=== PATIENT | male | born 1940 | race African-American/Black ===

== ENCOUNTER 2021-12-19 08:20 | Inpatient (IN) | payer OTHER ==
[~2021-12-19] VITALS: Ht 172.7 cm; Wt 93.0 kg
[2021-12-19] MEDS ORDERED: dilTIAZem 25 MG/5 ML VIAL IV ONE ×2 (08:33→08:45)
[2021-12-19] MEDS ORDERED: SODIUM CHLORIDE 0.9% 1,000 ML IV ONE (08:45)
[2021-12-19] MEDS ORDERED: ONDANSETRON HCL 4 MG/2 ML VIAL IV ONE (08:45)
[2021-12-19] MEDS ORDERED: dilTIAZem 125mg/125ml BAG KIT 125 ML IV ONE (08:45)
[2021-12-19] MEDS ORDERED: MORPHINE SULFATE 4 MG/ML SYR/VIAL IV ONE (08:45)
[2021-12-19 09:07] LABS: Basophils # (auto) 0.1 10 ^3/uL (0-0.2); Basophils % (auto) 0.6 % (0.0-2.0); Eosinophils # (auto) 0.3 10 ^3/uL (0-0.8); Eosinophils % (auto) 2.1 % (0.0-7.0); Hematocrit 47.2 % (41.0-53.0); Hemoglobin 15.4 g/dL (13.5-17.5); Lymphocytes # (auto) 2.5 10 ^3/uL (0.4-5.4); Lymphocytes % (auto) 15.6 % (10.0-50.0); Mean Corpuscular Hemoglobin 32.6 pg (28.0-32.0); Mean Corpuscular Hgb Conc. 32.6 g/dL (32.0-36.0); Mean Corpuscular Volume 100.3 fL (80.0-100.0); Monocytes # (auto) 0.8 10 ^3/uL (0-1.3); Monocytes % (auto) 5.1 % (0.0-12.0); Neutrophils # (auto) 12.1 10 ^3/uL (1.6-8.6); Neutrophils % (auto) 76.6 % (37.0-80.0); Red Blood Cells 4.71 10^6/uL (4.5-5.90); Red Cell Distribution Width 13.3 % (11.8-14.3); White Blood Cell 15.8 10^3/uL (4.4-10.8)
[2021-12-19 09:23] LABS: Albumin 3.7 g/dL (3.4-5.0); Magnesium 2.6 mg/dL (1.6-2.6); Potassium 4.8 mmol/L (3.5-5.1)
[2021-12-19 09:26] LABS: BUN/Creatinine Ratio 16.1; Bilirubin, Total 0.3 mg/dL (0.2-1.0); Total Protein 7.5 g/dL (6.4-8.2)
[2021-12-19 09:29] LABS: INR 0.99 (0.9-1.15); Partial Thromboplastin Time 29.4 sec (24.6-33.4)
[2021-12-19] MEDS ORDERED: ENOXAPARIN SOD 40 MG/0.4 ML SYRINGE SC ONE (09:45)
[2021-12-19 11:44] LABS: Urine Bacteria NONE SEEN /hpf (None Seen); Urine Blood TRACE /uL (Negative); Urine Hyaline Cast MOD /lpf (0 - 2); Urine Specific Gravity 1.019 (1.001-1.035); Urine WBC 1 /hpf (0 - 3)
[2021-12-19] MEDS ORDERED: NITROGLYCERIN 0.4 MG SL TAB SL PRN ×2 (12:00→14:00)
[2021-12-19] MEDS ORDERED: HEPARIN DRIP/D5W 100UNITS/ML 250 ML IV SCH ×2 (12:00→13:30)
[2021-12-19] MEDS ORDERED: MORPHINE SULFATE INJ 2 MG/ml SYRG IV PRN ×2 (12:00)
[2021-12-19] MEDS: SODIUM CHLORIDE 0.9% 1,000 ML IV SCH ×2 (12:00→20:20)
[2021-12-19] MEDS ORDERED: HYDROcodone-ACET 5/325MG TAB PO PRN (12:00)
[2021-12-19] MEDS ORDERED: ONDANSETRON HCL 4 MG/2 ML VIAL IV PRN (12:00)
[2021-12-19 13:09] LABS: Basophils # (auto) 0.1 10 ^3/uL (0-0.2); Basophils % (auto) 0.5 % (0.0-2.0); Eosinophils # (auto) 0 10 ^3/uL (0-0.8); Eosinophils % (auto) 0.2 % (0.0-7.0); Hematocrit 45.7 % (41.0-53.0); Lymphocytes # (auto) 1.3 10 ^3/uL (0.4-5.4); Lymphocytes % (auto) 8.6 % (10.0-50.0); Mean Corpuscular Hemoglobin 32.5 pg (28.0-32.0); Mean Corpuscular Hgb Conc. 32.9 g/dL (32.0-36.0); Mean Corpuscular Volume 98.7 fL (80.0-100.0); Monocytes # (auto) 0.8 10 ^3/uL (0-1.3); Monocytes % (auto) 5.2 % (0.0-12.0); Neutrophils # (auto) 13.2 10 ^3/uL (1.6-8.6); Neutrophils % (auto) 85.5 % (37.0-80.0); Red Blood Cells 4.63 10^6/uL (4.5-5.90); Red Cell Distribution Width 13.4 % (11.8-14.3); White Blood Cell 15.5 10^3/uL (4.4-10.8)
[2021-12-19] MEDS ORDERED: HEPARIN SODIUM (PORCINE) 5000 UNITS/ML 1ML VIAL IV ONE (13:30)
[2021-12-19 13:33] LABS: INR 0.97 (0.9-1.15); Partial Thromboplastin Time 32.2 sec (24.6-33.4)
[2021-12-19 21:14] LABS: INR 1.03 (0.9-1.15); Partial Thromboplastin Time 54.6 sec (24.6-33.4)
[2021-12-20] VITALS (92 sets, daily range): BP systolic 52–168; BP diastolic 20–145
[2021-12-20] MEDS: MORPHINE SULFATE INJ 2 MG/ml SYRG IV PRN ×2 (00:57→01:09)
[2021-12-20] MEDS ORDERED: LABETALOL HCL 5 MG/ML 4ML SYRINGE IV ONE (01:15)
[2021-12-20] MEDS ORDERED: SUCCINYLCHOLINE CHLORIDE 20 MG/ML 10ML VIAL IV ONE ×2 (01:21→01:24)
[2021-12-20] MEDS ORDERED: ETOMIDATE (2MG/ML) 20ML VIAL IV ONE ×2 (01:21→01:24)
[2021-12-20] MEDS: PROPOFOL 100 ML IV SCH ×6 (01:27→22:00)
[2021-12-20] MEDS ORDERED: PROPOFOL 100 ML IV ONE (01:28)
[2021-12-20] MEDS: MIDAZOLAM DRIP 50 mg/50mL 50 ML IV SCH ×3 (01:41→22:26)
[2021-12-20] MEDS ORDERED: MIDAZOLAM DRIP 50 mg/50mL 50 ML IV ONE (01:41)
[2021-12-20] MEDS ORDERED: ANGIOMAX 250 MG VIAL IV ONE (01:55)
[2021-12-20] MEDS ORDERED: LIDOCAINE 2%HCL (LOCAL ANESTH.) INJ 20ML MDV ONE (01:56)
[2021-12-20] MEDS ORDERED: IOHEXOL 350 MG/ML 100ML IJ ONE (01:56)
[2021-12-20] MEDS ORDERED: SODIUM CHL 0.9% 50 ML ONE (01:56)
[2021-12-20 02:00] LABS: Basophils # (auto) 0.1 10 ^3/uL (0-0.2); Basophils % (auto) 0.4 % (0.0-2.0); Eosinophils # (auto) 0.2 10 ^3/uL (0-0.8); Eosinophils % (auto) 1.3 % (0.0-7.0); Hematocrit 46.2 % (41.0-53.0); Lymphocytes # (auto) 5.1 10 ^3/uL (0.4-5.4); Lymphocytes % (auto) 28.9 % (10.0-50.0); Mean Corpuscular Hemoglobin 32.9 pg (28.0-32.0); Mean Corpuscular Hgb Conc. 32.5 g/dL (32.0-36.0); Mean Corpuscular Volume 101.2 fL (80.0-100.0); Monocytes # (auto) 1.2 10 ^3/uL (0-1.3); Monocytes % (auto) 6.7 % (0.0-12.0); Neutrophils # (auto) 11.1 10 ^3/uL (1.6-8.6); Neutrophils % (auto) 62.7 % (37.0-80.0); Nucleated Red Blood Cells % 0.1 %; Red Blood Cells 4.57 10^6/uL (4.5-5.90); Red Cell Distribution Width 13.5 % (11.8-14.3); White Blood Cell 17.8 10^3/uL (4.4-10.8)
[2021-12-20 02:15] LABS: INR 1.03 (0.9-1.15); Partial Thromboplastin Time 41.7 sec (24.6-33.4)
[2021-12-20 02:17] LABS: Albumin 3.5 g/dL (3.4-5.0); BUN/Creatinine Ratio 15.6; Potassium 4.7 mmol/L (3.5-5.1)
[2021-12-20 02:20] LABS: Bilirubin, Total 0.5 mg/dL (0.2-1.0); Total Protein 7.1 g/dL (6.4-8.2)
[2021-12-20] MEDS ORDERED: TICAGRELOR 90 MG TAB NG ONE (04:00)
[2021-12-20] MEDS ORDERED: HEPARIN SODIUM (PORCINE) 5000 UNITS/ML 1ML VIAL ONE (04:15)
[2021-12-20] MEDS: SODIUM CHLORIDE 0.9% 1,000 ML IV SCH ×3 (05:00→15:15)
[2021-12-20 05:02] LABS: Basophils # (auto) 0.1 10 ^3/uL (0-0.2); Basophils % (auto) 0.4 % (0.0-2.0); Eosinophils # (auto) 0 10 ^3/uL (0-0.8); Eosinophils % (auto) 0.3 % (0.0-7.0); Hematocrit 40.7 % (41.0-53.0); Hemoglobin 13.5 g/dL (13.5-17.5); Lymphocytes # (auto) 1.1 10 ^3/uL (0.4-5.4); Lymphocytes % (auto) 5.6 % (10.0-50.0); Mean Corpuscular Hgb Conc. 33.2 g/dL (32.0-36.0); Mean Corpuscular Volume 99.5 fL (80.0-100.0); Monocytes # (auto) 1.4 10 ^3/uL (0-1.3); Monocytes % (auto) 7.3 % (0.0-12.0); Neutrophils # (auto) 16.4 10 ^3/uL (1.6-8.6); Neutrophils % (auto) 86.4 % (37.0-80.0); Red Blood Cells 4.09 10^6/uL (4.5-5.90); Red Cell Distribution Width 13.2 % (11.8-14.3)
[2021-12-20 06:05] LABS: INR 1.36 (0.9-1.15); Partial Thromboplastin Time 55.5 sec (24.6-33.4)
[2021-12-20] MEDS: D5W 5% IV SCH (06:45)
[2021-12-20] MEDS: HEPARIN SODIUM IV SCH (06:45)
[2021-12-20] MEDS: HEPARIN DRIP/D5W 100UNITS/ML 250 ML IV SCH ×2 (07:00→23:07)
[2021-12-20] MEDS ORDERED: SODIUM CHLORIDE 0.9% 500 ML IV ONE ×2 (08:00→09:00)
[2021-12-20 08:31] LABS: INR 1.09 (0.9-1.15); Partial Thromboplastin Time 39.6 sec (24.6-33.4)
[2021-12-20 09:55] LABS: Albumin 2.8 g/dL (3.4-5.0); BUN/Creatinine Ratio 17.2; Calcium 7.6 mg/dL (8.5-10.1); Potassium 4.5 mmol/L (3.5-5.1)
[2021-12-20 09:58] LABS: Bilirubin, Total 0.7 mg/dL (0.2-1.0)
[2021-12-20] MEDS: TICAGRELOR 90 MG TAB GT SCH ×2 (11:30→21:43)
[2021-12-20 11:45] LABS: INR 1.03 (0.9-1.15)
[2021-12-20] MEDS ORDERED: DEXTROSE (50%) 50ML SYRG IV PRN (11:45)
[2021-12-20] MEDS: InsuLIN REG 1unit/0.01ml Soln (100units/ml) SC SCH ×2 (12:00→18:00)
[2021-12-20] MEDS: ACCU-CHEK COMFORT CURVE STRIP VI SCH ×2 (12:00→18:00)
[2021-12-20] MEDS ORDERED: OMEG100062 PO (13:57)
[2021-12-20] MEDS ORDERED: CLOP75TA70 PO (13:57)
[2021-12-20] MEDS ORDERED: DIGO0.12 PO (13:57)
[2021-12-20] MEDS ORDERED: ATOR20TA50 PO (13:57)
[2021-12-20] MEDS ORDERED: GABA-339 PO (13:57)
[2021-12-20] MEDS ORDERED: FURO20TA3 PO (13:57)
[2021-12-20] MEDS ORDERED: OMEP20TA PO (13:57)
[2021-12-20] MEDS ORDERED: ASPI-543 PO (13:57)
[2021-12-20] MEDS ORDERED: SPIR25TA8 PO (13:57)
[2021-12-20] MEDS ORDERED: TAMS1CAP25 PO (13:57)
[2021-12-20] MEDS ORDERED: CARV3.1240 PO (13:57)
[2021-12-20] MEDS ORDERED: DIA5T PO (13:57)
[2021-12-20] MEDS: ACETAMINOPHEN 325 MG TAB PO PRN ×2 (14:39→20:30)
[2021-12-20] MEDS ORDERED: VANCOMYCIN PER PHARMACY 0 MG IV SCH (15:15)
[2021-12-20] MEDS ORDERED: VANCOMYCIN 1GM/250ML 250 ML IV ONE (15:30)
[2021-12-20] MEDS: MEROPENEM 2 GM in SODIUM CHL 0.9% 250 ML IV SCH (18:49)
[2021-12-20 22:28] LABS: BUN/Creatinine Ratio 16.8; Calcium 8.3 mg/dL (8.5-10.1); Magnesium 2.4 mg/dL (1.6-2.6); Potassium 3.9 mmol/L (3.5-5.1)
[2021-12-20 22:50] LABS: INR 1.01 (0.9-1.15); Partial Thromboplastin Time 62.1 sec (24.6-33.4)
[2021-12-20] MEDS ORDERED: FUROSEMIDE 40 MG/4 ML VIAL ONE (22:59)
[2021-12-20] MEDS ORDERED: FUROSEMIDE 40 MG/4 ML VIAL IV ONE (23:00)
[2021-12-21] VITALS (103 sets, daily range): BP systolic 29–152; BP diastolic 13–93
[2021-12-21] MEDS: ACCU-CHEK COMFORT CURVE STRIP VI SCH ×5 (00:20→23:16)
[2021-12-21] MEDS: MEROPENEM 2 GM in SODIUM CHL 0.9% 250 ML IV SCH ×3 (00:31→16:58)
[2021-12-21] MEDS: MIDAZOLAM DRIP 50 mg/50mL 50 ML IV SCH ×7 (02:06→22:38)
[2021-12-21] MEDS: ACETAMINOPHEN 325 MG TAB PO PRN (02:34)
[2021-12-21] MEDS: PROPOFOL 100 ML IV SCH ×6 (02:51→20:26)
[2021-12-21 03:40] LABS: Basophils # (auto) 0 10 ^3/uL (0-0.2); Basophils % (auto) 0.2 % (0.0-2.0); Eosinophils # (auto) 0 10 ^3/uL (0-0.8); Eosinophils % (auto) 0.2 % (0.0-7.0); Hematocrit 41.1 % (41.0-53.0); Hemoglobin 13.6 g/dL (13.5-17.5); Lymphocytes % (auto) 5.9 % (10.0-50.0); Mean Corpuscular Hemoglobin 32.9 pg (28.0-32.0); Mean Corpuscular Hgb Conc. 33.1 g/dL (32.0-36.0); Mean Corpuscular Volume 99.4 fL (80.0-100.0); Monocytes # (auto) 1.7 10 ^3/uL (0-1.3); Monocytes % (auto) 10.3 % (0.0-12.0); Neutrophils # (auto) 13.6 10 ^3/uL (1.6-8.6); Neutrophils % (auto) 83.4 % (37.0-80.0); Red Blood Cells 4.14 10^6/uL (4.5-5.90); Red Cell Distribution Width 13.3 % (11.8-14.3); White Blood Cell 16.3 10^3/uL (4.4-10.8)
[2021-12-21 04:00] LABS: INR 1.05 (0.9-1.15); Partial Thromboplastin Time 65.5 sec (24.6-33.4)
[2021-12-21 04:53] LABS: Potassium 3.5 mmol/L (3.5-5.1)
[2021-12-21 04:54] LABS: BUN/Creatinine Ratio 16.1; Calcium 7.9 mg/dL (8.5-10.1)
[2021-12-21] MEDS ORDERED: POTASSIUM CHL 20MEQ/100ML 100 ML IV ONE ×2 (05:45→05:50)
[2021-12-21] MEDS: HEPARIN SODIUM IV SCH (05:59)
[2021-12-21] MEDS: D5W 5% IV SCH (05:59)
[2021-12-21] MEDS: InsuLIN REG 1unit/0.01ml Soln (100units/ml) SC SCH ×5 (06:00→23:14)
[2021-12-21 07:58] LABS: INR 1.03 (0.9-1.15); Partial Thromboplastin Time 66.7 sec (24.6-33.4)
[2021-12-21] MEDS: TICAGRELOR 90 MG TAB GT SCH ×2 (10:07→21:32)
[2021-12-21 10:41] LABS: INR 1.03 (0.9-1.15); Partial Thromboplastin Time 59.1 sec (24.6-33.4)
[2021-12-21] MEDS ORDERED: VANCOMYCIN 1GM/250ML 250 ML IV SCH (11:00)
[2021-12-21] MEDS: fentaNYL Drip 2500mCg/250mlNS 250 ML IV SCH ×2 (14:12→22:00)
[2021-12-21 14:47] LABS: Partial Thromboplastin Time 62.4 sec (24.6-33.4)
[2021-12-21 17:15] LABS: INR 1.04 (0.9-1.15); Partial Thromboplastin Time 62.4 sec (24.6-33.4)
[2021-12-21] MEDS ORDERED: FUROSEMIDE 20 MG/2 ML VIAL IV ONE (18:00)
[2021-12-21] MEDS: POTASSIUM CHL 20MEQ/100ML 100 ML IV SCH ×3 (18:01→23:12)
[2021-12-21] MEDS: HEPARIN DRIP/D5W 100UNITS/ML 250 ML IV SCH (20:25)
[2021-12-21 22:50] LABS: INR 1.01 (0.9-1.15); Partial Thromboplastin Time 63.8 sec (24.6-33.4)
[2021-12-22] VITALS (94 sets, daily range): BP systolic 27–163; BP diastolic 11–97
[2021-12-22] MEDS: MEROPENEM 2 GM in SODIUM CHL 0.9% 250 ML IV SCH ×3 (00:45→17:00)
[2021-12-22 03:02] LABS: INR 1.02 (0.9-1.15); Partial Thromboplastin Time 63.5 sec (24.6-33.4)
[2021-12-22] MEDS: PROPOFOL 100 ML IV SCH ×6 (03:23→23:13)
[2021-12-22] MEDS: MIDAZOLAM DRIP 50 mg/50mL 50 ML IV SCH ×5 (03:24→19:43)
[2021-12-22 03:49] LABS: Basophils # (auto) 0 10 ^3/uL (0-0.2); Basophils % (auto) 0.3 % (0.0-2.0); Hemoglobin 13.4 g/dL (13.5-17.5); Lymphocytes # (auto) 1.1 10 ^3/uL (0.4-5.4); Neutrophils # (auto) 11.6 10 ^3/uL (1.6-8.6)
[2021-12-22 03:52] LABS: Eosinophils # (auto) 0.1 10 ^3/uL (0-0.8); Eosinophils % (auto) 0.5 % (0.0-7.0); Hematocrit 39.1 % (41.0-53.0); Lymphocytes % (auto) 7.5 % (10.0-50.0); Mean Corpuscular Hemoglobin 33.3 pg (28.0-32.0); Mean Corpuscular Hgb Conc. 34.2 g/dL (32.0-36.0); Mean Corpuscular Volume 97.3 fL (80.0-100.0); Monocytes # (auto) 1.4 10 ^3/uL (0-1.3); Monocytes % (auto) 10.1 % (0.0-12.0); Neutrophils % (auto) 81.6 % (37.0-80.0); Red Blood Cells 4.01 10^6/uL (4.5-5.90); White Blood Cell 14.2 10^3/uL (4.4-10.8)
[2021-12-22 04:06] LABS: Albumin 2.4 g/dL (3.4-5.0); BUN/Creatinine Ratio 11.9; Calcium 7.7 mg/dL (8.5-10.1); Potassium 3.7 mmol/L (3.5-5.1)
[2021-12-22 04:09] LABS: Bilirubin, Total 0.8 mg/dL (0.2-1.0); Total Protein 5.9 g/dL (6.4-8.2)
[2021-12-22] MEDS ORDERED: HEPARIN SODIUM (PORCINE) 5000 UNITS/ML 1ML VIAL ONE (05:41)
[2021-12-22] MEDS ORDERED: HEPARIN 1,000 UNITS/ml 1ML VIAL ONE ×2 (05:41→06:02)
[2021-12-22] MEDS: HEPARIN SODIUM IV SCH (05:55)
[2021-12-22] MEDS: D5W 5% IV SCH (05:55)
[2021-12-22] MEDS: InsuLIN REG 1unit/0.01ml Soln (100units/ml) SC SCH ×4 (06:00→23:50)
[2021-12-22 06:21] LABS: INR 0.98 (0.9-1.15); Partial Thromboplastin Time 60.4 sec (24.6-33.4)
[2021-12-22] MEDS: ACCU-CHEK COMFORT CURVE STRIP VI SCH ×4 (06:45→23:50)
[2021-12-22] MEDS: TICAGRELOR 90 MG TAB GT SCH ×2 (09:34→21:06)
[2021-12-22] MEDS ORDERED: ALBUMIN 5% 250 ML IV ONE (10:30)
[2021-12-22] MEDS ORDERED: DIGOXIN (250MCG/ML) 2 ML AMPULE IV ONE (10:30)
[2021-12-22 10:36] LABS: Partial Thromboplastin Time 63.3 sec (24.6-33.4)
[2021-12-22] MEDS ORDERED: HEPARIN DRIP/D5W 100UNITS/ML 250 ML IV SCH (11:15)
[2021-12-22] MEDS ORDERED: POTASSIUM CHL 20MEQ/100ML 100 ML IV ONE (12:00)
[2021-12-22] MEDS: MAGNESIUM SULFATE 1GM/100ML 100 ML IV SCH ×2 (12:05→13:50)
[2021-12-22] MEDS ORDERED: Jevity 1.2 Cal/Fiber 1 Liter GT SCH (16:00)
[2021-12-22 16:04] LABS: INR 1.04 (0.9-1.15); Partial Thromboplastin Time 32.4 sec (24.6-33.4)
[2021-12-22] MEDS: ACETAMINOPHEN 325 MG TAB PO PRN (21:00)
[2021-12-22] MEDS: fentaNYL Drip 2500mCg/250mlNS 250 ML IV SCH (22:00)
[2021-12-23] VITALS (107 sets, daily range): BP systolic 81–153; BP diastolic 40–119
[2021-12-23] MEDS: MEROPENEM 2 GM in SODIUM CHL 0.9% 250 ML IV SCH ×3 (00:31→17:22)
[2021-12-23] MEDS: MIDAZOLAM DRIP 50 mg/50mL 50 ML IV SCH ×3 (01:40→19:45)
[2021-12-23 03:36] LABS: Basophils # (auto) 0.1 10 ^3/uL (0-0.2); Basophils % (auto) 0.4 % (0.0-2.0); Eosinophils # (auto) 0 10 ^3/uL (0-0.8); Eosinophils % (auto) 0.2 % (0.0-7.0); Hematocrit 37.8 % (41.0-53.0); Lymphocytes # (auto) 0.9 10 ^3/uL (0.4-5.4); Lymphocytes % (auto) 6.3 % (10.0-50.0); Mean Corpuscular Hemoglobin 33.4 pg (28.0-32.0); Mean Corpuscular Hgb Conc. 34.4 g/dL (32.0-36.0); Monocytes # (auto) 1.2 10 ^3/uL (0-1.3); Monocytes % (auto) 8.3 % (0.0-12.0); Neutrophils # (auto) 12.5 10 ^3/uL (1.6-8.6); Neutrophils % (auto) 84.8 % (37.0-80.0); Red Cell Distribution Width 13.3 % (11.8-14.3); White Blood Cell 14.7 10^3/uL (4.4-10.8)
[2021-12-23 03:56] LABS: BUN/Creatinine Ratio 16.9; Calcium 7.7 mg/dL (8.5-10.1); Potassium 4.3 mmol/L (3.5-5.1)
[2021-12-23] MEDS: InsuLIN REG 1unit/0.01ml Soln (100units/ml) SC SCH ×4 (05:43→23:52)
[2021-12-23] MEDS: ACCU-CHEK COMFORT CURVE STRIP VI SCH ×4 (05:43→23:52)
[2021-12-23] MEDS: TICAGRELOR 90 MG TAB GT SCH ×2 (10:33→22:06)
[2021-12-23] MEDS: FAMOTIDINE (10MG/ML) 2ML VL IV SCH (10:33)
[2021-12-23] MEDS: PROPOFOL 100 ML IV SCH ×2 (15:17→18:00)
[2021-12-23] MEDS: ACETAMINOPHEN 325 MG TAB PO PRN ×2 (15:17→22:07)
[2021-12-23] MEDS ORDERED: PROPOFOL 100 ML IV SCH (17:45)
[2021-12-23] MEDS: fentaNYL Drip 2500mCg/250mlNS 250 ML IV SCH (18:00)
[2021-12-23] MEDS: ALBUTEROL SULF 2.5 MG/0.5ML(0.5%) NEB SOLN NEB PRN (22:24)
[2021-12-23] MEDS: IPRATROPIUM BROM 0.5 MG/2.5ML INH SOL NEB PRN (22:24)
[2021-12-24] VITALS (101 sets, daily range): BP systolic 74–147; BP diastolic 36–122
[2021-12-24] MEDS: PROPOFOL 100 ML IV SCH ×4 (01:00→22:00)
[2021-12-24] MEDS: MIDAZOLAM DRIP 50 mg/50mL 50 ML IV SCH ×4 (01:00→22:00)
[2021-12-24] MEDS: MEROPENEM 2 GM in SODIUM CHL 0.9% 250 ML IV SCH ×3 (01:04→17:39)
[2021-12-24 04:41] LABS: Basophils # (auto) 0.1 10 ^3/uL (0-0.2); Basophils % (auto) 0.5 % (0.0-2.0); Eosinophils # (auto) 0.1 10 ^3/uL (0-0.8); Eosinophils % (auto) 0.9 % (0.0-7.0); Hematocrit 36.7 % (41.0-53.0); Hemoglobin 12.6 g/dL (13.5-17.5); Lymphocytes # (auto) 1.3 10 ^3/uL (0.4-5.4); Lymphocytes % (auto) 10.5 % (10.0-50.0); Mean Corpuscular Hemoglobin 33.6 pg (28.0-32.0); Mean Corpuscular Hgb Conc. 34.3 g/dL (32.0-36.0); Mean Corpuscular Volume 98.2 fL (80.0-100.0); Monocytes # (auto) 1.6 10 ^3/uL (0-1.3); Monocytes % (auto) 12.6 % (0.0-12.0); Neutrophils # (auto) 9.4 10 ^3/uL (1.6-8.6); Neutrophils % (auto) 75.5 % (37.0-80.0); Red Blood Cells 3.74 10^6/uL (4.5-5.90); Red Cell Distribution Width 13.2 % (11.8-14.3); White Blood Cell 12.4 10^3/uL (4.4-10.8)
[2021-12-24 04:53] LABS: INR 0.97 (0.9-1.15); Partial Thromboplastin Time 26.2 sec (24.6-33.4)
[2021-12-24 04:59] LABS: Albumin 2.4 g/dL (3.4-5.0); Calcium 7.8 mg/dL (8.5-10.1)
[2021-12-24 05:01] LABS: BUN/Creatinine Ratio 18.5
[2021-12-24 05:03] LABS: Bilirubin, Total 0.8 mg/dL (0.2-1.0)
[2021-12-24] MEDS: InsuLIN REG 1unit/0.01ml Soln (100units/ml) SC SCH ×4 (06:00→23:57)
[2021-12-24] MEDS: ACCU-CHEK COMFORT CURVE STRIP VI SCH ×4 (06:19→23:54)
[2021-12-24] MEDS: FAMOTIDINE (10MG/ML) 2ML VL IV SCH (09:24)
[2021-12-24] MEDS: TICAGRELOR 90 MG TAB GT SCH ×2 (09:25→21:40)
[2021-12-24] MEDS: ACETAMINOPHEN 325 MG TAB PO PRN ×2 (10:36→21:34)
[2021-12-24] MEDS ORDERED: AMIODARONE 450mg/250ml AE 250 ML IV SCH (12:00)
[2021-12-24] MEDS ORDERED: AMIODARONE HCL 150 MG in D5W 5% 100 ML IV ONE (12:00)
[2021-12-24] MEDS ORDERED: FUROSEMIDE 40 MG/4 ML VIAL IV ONE (13:00)
[2021-12-24] MEDS ORDERED: LIDOCAINE 1% (LOCAL ANESTH.) PF 5ml SDV ID ONE (13:00)
[2021-12-24] MEDS ORDERED: PHENYLEPHRINE IV 250 ML IV SCH (13:45)
[2021-12-24] MEDS: fentaNYL Drip 2500mCg/250mlNS 250 ML IV SCH (14:20)
[2021-12-24] MEDS: DOPamine 1600MCG/ML D5W 250 ML IV SCH ×3 (14:45→15:30)
[2021-12-24] MEDS: EPINEPHrine HCL 250 ML IV SCH (14:45)
[2021-12-24] MEDS ORDERED: ALBUMIN 5% 250 ML IV ONE (14:45)
[2021-12-24] MEDS: ALBUTEROL SULF 2.5 MG/0.5ML(0.5%) NEB SOLN NEB PRN ×2 (18:16→22:32)
[2021-12-24] MEDS: IPRATROPIUM BROM 0.5 MG/2.5ML INH SOL NEB PRN ×2 (18:16→22:32)
[2021-12-24] MEDS: AMIODARONE 450mg/250ml AE 250 ML IV SCH (18:35)
[2021-12-24] MEDS: SODIUM CHLOR 0.9% PF (SALINE LOCK) 10ML VIAL/SYR IV SCH (21:40)
[2021-12-25] VITALS (106 sets, daily range): BP systolic 89–129; BP diastolic 38–92
[2021-12-25] MEDS: MEROPENEM 2 GM in SODIUM CHL 0.9% 250 ML IV SCH ×3 (00:44→21:06)
[2021-12-25] MEDS: PROPOFOL 100 ML IV SCH ×4 (02:00→21:00)
[2021-12-25] MEDS: MIDAZOLAM DRIP 50 mg/50mL 50 ML IV SCH ×6 (02:00→22:31)
[2021-12-25] MEDS: fentaNYL Drip 2500mCg/250mlNS 250 ML IV SCH (02:00)
[2021-12-25 03:45] LABS: Basophils # (auto) 0 10 ^3/uL (0-0.2); Basophils % (auto) 0.3 % (0.0-2.0); Eosinophils # (auto) 0.1 10 ^3/uL (0-0.8); Eosinophils % (auto) 0.4 % (0.0-7.0); Hematocrit 32.3 % (41.0-53.0); Hemoglobin 10.9 g/dL (13.5-17.5); Lymphocytes # (auto) 0.9 10 ^3/uL (0.4-5.4); Lymphocytes % (auto) 7.1 % (10.0-50.0); Mean Corpuscular Hemoglobin 33.4 pg (28.0-32.0); Mean Corpuscular Hgb Conc. 33.6 g/dL (32.0-36.0); Mean Corpuscular Volume 99.3 fL (80.0-100.0); Monocytes # (auto) 1.5 10 ^3/uL (0-1.3); Monocytes % (auto) 11.6 % (0.0-12.0); Neutrophils # (auto) 10.8 10 ^3/uL (1.6-8.6); Neutrophils % (auto) 80.6 % (37.0-80.0); Red Blood Cells 3.26 10^6/uL (4.5-5.90); White Blood Cell 13.4 10^3/uL (4.4-10.8)
[2021-12-25 04:05] LABS: BUN/Creatinine Ratio 19.6; Calcium 7.9 mg/dL (8.5-10.1); Magnesium 2.7 mg/dL (1.6-2.6); Potassium 4.2 mmol/L (3.5-5.1)
[2021-12-25] MEDS: InsuLIN REG 1unit/0.01ml Soln (100units/ml) SC SCH ×4 (06:00→23:51)
[2021-12-25] MEDS: DOPamine 1600MCG/ML D5W 250 ML IV SCH ×4 (06:25→18:21)
[2021-12-25] MEDS: ACCU-CHEK COMFORT CURVE STRIP VI SCH ×4 (06:29→23:51)
[2021-12-25] MEDS: AMIODARONE 450mg/250ml AE 250 ML IV SCH ×2 (07:31→18:21)
[2021-12-25] MEDS: PANTOPRAZOLE 40 MG/10 ML VIAL INJ IV SCH (09:04)
[2021-12-25] MEDS: FAMOTIDINE (10MG/ML) 2ML VL IV SCH (09:05)
[2021-12-25] MEDS: TICAGRELOR 90 MG TAB GT SCH ×2 (09:10→21:40)
[2021-12-25] MEDS: SODIUM CHLOR 0.9% PF (SALINE LOCK) 10ML VIAL/SYR IV SCH ×2 (09:52→21:40)
[2021-12-25] MEDS: EPINEPHrine HCL 250 ML IV SCH (14:45)
[2021-12-25] MEDS: ACETAMINOPHEN 325 MG TAB PO PRN (22:56)
[2021-12-26] VITALS (104 sets, daily range): BP systolic 10–173; BP diastolic 45–83
[2021-12-26] MEDS: PROPOFOL 100 ML IV SCH ×4 (01:00→22:26)
[2021-12-26] MEDS: fentaNYL Drip 2500mCg/250mlNS 250 ML IV SCH ×2 (01:48→11:53)
[2021-12-26] MEDS: MIDAZOLAM DRIP 50 mg/50mL 50 ML IV SCH ×4 (03:30→22:27)
[2021-12-26 04:24] LABS: Basophils # (auto) 0.1 10 ^3/uL (0-0.2); Basophils % (auto) 0.4 % (0.0-2.0); Eosinophils # (auto) 0.1 10 ^3/uL (0-0.8); Eosinophils % (auto) 0.9 % (0.0-7.0); Hematocrit 33.7 % (41.0-53.0); Hemoglobin 11.2 g/dL (13.5-17.5); Lymphocytes # (auto) 0.5 10 ^3/uL (0.4-5.4); Lymphocytes % (auto) 3.7 % (10.0-50.0); Mean Corpuscular Hemoglobin 32.9 pg (28.0-32.0); Mean Corpuscular Hgb Conc. 33.1 g/dL (32.0-36.0); Mean Corpuscular Volume 99.4 fL (80.0-100.0); Monocytes # (auto) 1.4 10 ^3/uL (0-1.3); Monocytes % (auto) 9.9 % (0.0-12.0); Neutrophils # (auto) 11.6 10 ^3/uL (1.6-8.6); Neutrophils % (auto) 85.1 % (37.0-80.0); Red Blood Cells 3.39 10^6/uL (4.5-5.90); Red Cell Distribution Width 13.1 % (11.8-14.3); White Blood Cell 13.7 10^3/uL (4.4-10.8)
[2021-12-26 04:45] LABS: Calcium 8.4 mg/dL (8.5-10.1); Potassium 5.2 mmol/L (3.5-5.1)
[2021-12-26 04:48] LABS: BUN/Creatinine Ratio 25.6
[2021-12-26] MEDS: InsuLIN REG 1unit/0.01ml Soln (100units/ml) SC SCH ×3 (06:00→17:14)
[2021-12-26] MEDS: ACCU-CHEK COMFORT CURVE STRIP VI SCH ×3 (06:21→17:14)
[2021-12-26] MEDS: AMIODARONE 450mg/250ml AE 250 ML IV SCH (07:59)
[2021-12-26] MEDS: TICAGRELOR 90 MG TAB GT SCH ×2 (09:14→21:45)
[2021-12-26] MEDS: PANTOPRAZOLE 40 MG/10 ML VIAL INJ IV SCH (09:14)
[2021-12-26] MEDS: SODIUM CHLOR 0.9% PF (SALINE LOCK) 10ML VIAL/SYR IV SCH ×2 (09:15→21:45)
[2021-12-26] MEDS: MEROPENEM 2 GM in SODIUM CHL 0.9% 250 ML IV SCH (09:15)
[2021-12-26] MEDS ORDERED: levoFLOXacin 750MG 150 ML IV ONE (11:00)
[2021-12-26] MEDS: EPINEPHrine HCL 250 ML IV SCH (14:45)
[2021-12-26] MEDS: MEROPENEM 1GM IVPB 100 ML IV SCH (16:45)
[2021-12-26] MEDS ORDERED: MEROPENEM 2 GM in SODIUM CHL 0.9% 250 ML IV SCH (17:00)
[2021-12-26] MEDS: DOPamine 1600MCG/ML D5W 250 ML IV SCH (21:02)
[2021-12-26] MEDS: ACETAMINOPHEN 325 MG TAB PO PRN (21:24)
[2021-12-26] MEDS ORDERED: QUEtiapine FUMARATE 100 MG TAB PO ONE (23:45)
[2021-12-27] VITALS (100 sets, daily range): BP systolic 77–150; BP diastolic 41–86
[2021-12-27] MEDS: ACCU-CHEK COMFORT CURVE STRIP VI SCH ×4 (00:01→17:37)
[2021-12-27] MEDS: AMIODARONE 450mg/250ml AE 250 ML IV SCH ×2 (00:20→12:16)
[2021-12-27] MEDS: MEROPENEM 1GM IVPB 100 ML IV SCH ×3 (01:02→17:33)
[2021-12-27] MEDS: PROPOFOL 100 ML IV SCH ×2 (02:58→21:46)
[2021-12-27 04:09] LABS: Basophils # (auto) 0 10 ^3/uL (0-0.2); Basophils % (auto) 0.2 % (0.0-2.0); Eosinophils # (auto) 0.1 10 ^3/uL (0-0.8); Eosinophils % (auto) 0.5 % (0.0-7.0); Hematocrit 31.1 % (41.0-53.0); Hemoglobin 10.5 g/dL (13.5-17.5); Lymphocytes # (auto) 0.7 10 ^3/uL (0.4-5.4); Mean Corpuscular Hemoglobin 33.1 pg (28.0-32.0); Mean Corpuscular Hgb Conc. 33.7 g/dL (32.0-36.0); Mean Corpuscular Volume 98.2 fL (80.0-100.0); Monocytes # (auto) 1.1 10 ^3/uL (0-1.3); Monocytes % (auto) 9.3 % (0.0-12.0); Neutrophils # (auto) 10.3 10 ^3/uL (1.6-8.6); Nucleated Red Blood Cells % 0.1 %; Red Blood Cells 3.17 10^6/uL (4.5-5.90); Red Cell Distribution Width 12.6 % (11.8-14.3); White Blood Cell 12.2 10^3/uL (4.4-10.8)
[2021-12-27 04:22] LABS: BUN/Creatinine Ratio 29.5; Calcium 8.1 mg/dL (8.5-10.1); Potassium 4.8 mmol/L (3.5-5.1)
[2021-12-27] MEDS: MIDAZOLAM DRIP 50 mg/50mL 50 ML IV SCH ×2 (05:10→21:47)
[2021-12-27] MEDS: InsuLIN REG 1unit/0.01ml Soln (100units/ml) SC SCH ×4 (06:00→17:37)
[2021-12-27] MEDS: levoFLOXacin 750MG 150 ML IV SCH (09:34)
[2021-12-27] MEDS: TICAGRELOR 90 MG TAB GT SCH ×2 (09:34→21:44)
[2021-12-27] MEDS: SODIUM CHLOR 0.9% PF (SALINE LOCK) 10ML VIAL/SYR IV SCH ×2 (09:37→21:45)
[2021-12-27] MEDS: PANTOPRAZOLE 40 MG/10 ML VIAL INJ IV SCH (09:37)
[2021-12-27] MEDS: fentaNYL Drip 2500mCg/250mlNS 250 ML IV SCH (12:21)
[2021-12-27] MEDS: DOPamine 1600MCG/ML D5W 250 ML IV SCH (12:33)
[2021-12-27] MEDS: EPINEPHrine HCL 250 ML IV SCH (14:45)
[2021-12-27] MEDS ORDERED: ASPirin 81 mg TAB PO ONE (15:45)
[2021-12-27] MEDS ORDERED: ASPirin 81 mg TAB GT ONE (15:45)
[2021-12-27] MEDS: ENOXAPARIN SOD 40 MG/0.4 ML SYRINGE SC SCH (17:33)
[2021-12-27] MEDS ORDERED: FUROSEMIDE 40 MG/4 ML VIAL IV ONE (21:15)
[2021-12-27] MEDS ORDERED: FUROSEMIDE 40 MG/4 ML VIAL ONE (21:27)
[2021-12-27] MEDS: ACETAMINOPHEN 325 MG TAB PO PRN (21:48)
[2021-12-28] VITALS (53 sets, daily range): BP systolic 114–183; BP diastolic 47–92
[2021-12-28] MEDS: IPRATROPIUM BROM 0.5 MG/2.5ML INH SOL NEB PRN (00:37)
[2021-12-28] MEDS: ALBUTEROL SULF 2.5 MG/0.5ML(0.5%) NEB SOLN NEB PRN (00:37)
[2021-12-28] MEDS: MEROPENEM 1GM IVPB 100 ML IV SCH ×3 (01:20→18:12)
[2021-12-28] MEDS: DOPamine 1600MCG/ML D5W 250 ML IV SCH (04:04)
[2021-12-28] MEDS: InsuLIN REG 1unit/0.01ml Soln (100units/ml) SC SCH ×4 (05:57→18:00)
[2021-12-28] MEDS: ACCU-CHEK COMFORT CURVE STRIP VI SCH ×4 (05:57→18:13)
[2021-12-28] MEDS: fentaNYL Drip 2500mCg/250mlNS 250 ML IV SCH (05:59)
[2021-12-28] MEDS: PROPOFOL 100 ML IV SCH (06:00)
[2021-12-28] MEDS: AMIODARONE 450mg/250ml AE 250 ML IV SCH (06:45)
[2021-12-28] MEDS: levoFLOXacin 750MG 150 ML IV SCH (09:48)
[2021-12-28] MEDS: ENOXAPARIN SOD 40 MG/0.4 ML SYRINGE SC SCH (09:48)
[2021-12-28] MEDS: SODIUM CHLOR 0.9% PF (SALINE LOCK) 10ML VIAL/SYR IV SCH (09:48)
[2021-12-28] MEDS: PANTOPRAZOLE 40 MG/10 ML VIAL INJ IV SCH (09:48)
[2021-12-28] MEDS: TICAGRELOR 90 MG TAB GT SCH (09:49)
[2021-12-28] MEDS ORDERED: ASPirin 81 mg TAB GT SCH (10:00)
[2021-12-28] MEDS: EPINEPHrine HCL 250 ML IV SCH (14:45)
[2021-12-28] MEDS ORDERED: LORazepam 2MG/ML-1ML VIAL IV PRN (18:30)
[2021-12-28] MEDS ORDERED: ONDANSETRON HCL 4 MG/2 ML VIAL IV PRN (18:30)
[2021-12-28] MEDS ORDERED: MORPHINE SULFATE INJ 2 MG/ml SYRG IV PRN ×2 (18:30→20:30)
[2021-12-29] VITALS (7 sets, daily range): BP systolic 118–160; BP diastolic 63–85
== END 2021-12-29 15:50 | DRG 215 ==
LOC: EDBD 08:20 → ER 08:20 → TELE 12:03 → TELE-EAST 22:45 → ICU WEST 12-20 01:10
PROVIDERS: ADMIT Internal Medicine; ATTEND Internal Medicine
PROC: 02HA3RZ Insertion of Short-term External Heart Assist System into Heart, Percutaneous Approach (ICD-10-PCS; principal; 2021-12-20)
PROC: 027135Z Dilation of Coronary Artery, Two Arteries with Two Drug-eluting Intraluminal Devices, Percutaneous Approach (ICD-10-PCS; 2021-12-20)
PROC: 5A0221D Assistance with Cardiac Output using Impeller Pump, Continuous (ICD-10-PCS; 2021-12-20)
PROC: 4A023N8 Measurement of Cardiac Sampling and Pressure, Bilateral, Percutaneous Approach (ICD-10-PCS; 2021-12-20)
PROC: B2111ZZ Fluoroscopy of Multiple Coronary Arteries using Low Osmolar Contrast (ICD-10-PCS; 2021-12-20)
PROC: B2131ZZ Fluoroscopy of Multiple Coronary Artery Bypass Grafts using Low Osmolar Contrast (ICD-10-PCS; 2021-12-20)
PROC: B2181ZZ Fluoroscopy of Left Internal Mammary Bypass Graft using Low Osmolar Contrast (ICD-10-PCS; 2021-12-20)
PROC: 5A1955Z Respiratory Ventilation, Greater than 96 Consecutive Hours (ICD-10-PCS; 2021-12-20)
PROC: 0BH17EZ Insertion of Endotracheal Airway into Trachea, Via Natural or Artificial Opening (ICD-10-PCS; 2021-12-20)
PROC: 02PA3RZ Removal of Short-term External Heart Assist System from Heart, Percutaneous Approach (ICD-10-PCS; 2021-12-22)
PROC: 02HV33Z Insertion of Infusion Device into Superior Vena Cava, Percutaneous Approach (ICD-10-PCS; 2021-12-24)
PROC: B548ZZA Ultrasonography of Superior Vena Cava, Guidance (ICD-10-PCS; 2021-12-24)
DX: I21.4 Non-ST elevation (NSTEMI) myocardial infarction (principal); J18.9 Pneumonia, unspecified organism; J96.01 Acute respiratory failure with hypoxia; G93.41 Metabolic encephalopathy; I50.21 Acute systolic (congestive) heart failure; N17.9 Acute kidney failure, unspecified; I47.1 Supraventricular tachycardia; G93.1 Anoxic brain damage, not elsewhere classified; I13.0 Hypertensive heart and chronic kidney disease with heart failure and stage 1 through stage 4 chronic kidney disease, or unspecified chronic kidney disease; I47.20 Ventricular tachycardia, unspecified; I25.810 Atherosclerosis of coronary artery bypass graft(s) without angina pectoris; Z66 Do not resuscitate; R57.0 Cardiogenic shock; I25.10 Atherosclerotic heart disease of native coronary artery without angina pectoris; Z20.822 Contact with and (suspected) exposure to COVID-19; N18.9 Chronic kidney disease, unspecified; I49.9 Cardiac arrhythmia, unspecified; I25.5 Ischemic cardiomyopathy; E11.22 Type 2 diabetes mellitus with diabetic chronic kidney disease; D72.829 Elevated white blood cell count, unspecified; F17.210 Nicotine dependence, cigarettes, uncomplicated; I25.2 Old myocardial infarction; Z95.810 Presence of automatic (implantable) cardiac defibrillator; Z98.61 Coronary angioplasty status; Z88.0 Allergy status to penicillin; Z51.5 Encounter for palliative care
CPT/HCPCS: 33990; 33992; 36415; 36569; 36600; 70450; 71045; 80048; 80053; 81001; 82565; 82805; 82962; 83605; 83735; 83880; 84132; 84484; 85025; 85610; 85730; 87040; 87070; 87077; 87081; 87086; 87186; 87205; 87426; 92928; 93005; 93306; 93461; 94003; 94640; 96365; 96375; 96376; 96379; 99152; 99153; 99291; C1874; C9113; G0378; J0330; J1956; J2185; J2250; J2405; J2704; J3480; J3490; J7060